=== PATIENT | male | born 1955 | race Caucasian/White ===

== ENCOUNTER → 2018-08-22 | Outpatient (CLI) | payer MEDICARE ==
--- NOTE | 2018-08-22 12:19 | Diagnostic Imaging Report ---
Exam: Testicular ultrasound with doppler. Clinical History: Spermatocele of the epididymis. Findings: Sonographic evaluation of the testicles. Both testes are normal in echogenicity and size without intratesticular mass. Large right hydrocele. No left hydrocele. No evidence of varicocele. The right testes measures 5.1 x 2.8 x 3.4 cm and the left testes measures 5.1 x 2.3 x 3.2 cm. The left epididymis is unremarkable. There are multiple predominantly anechoic lesions in the right epididymis, largest measuring up to 2.2 x 0.7 x 2.1 cm, with posterior acoustic enhancement. Some of the lesions have mild internal echogenicity. Normal Doppler flow in bilateral testicles and epididymides. Impression: Multiple cystic lesions in the right epididymis, consistent with clinical history of spermatocele. Large right hydrocele. Signed by: Dr. Silvana Matamoros MD on 08/22/2018 12:15 PM
== END ==
LOC: US 10:12
PROVIDERS: ATTEND Urology
DX: N43.40 Spermatocele of epididymis, unspecified (principal)
CPT/HCPCS: 76870; 93976